=== PATIENT | male | born 1960 | race Caucasian/White ===

== ENCOUNTER → 2023-12-09 06:25 | Day surgery (SDC) | payer BC, SELFPAY | LOC: GI 06:25 | PROVIDERS: ATTENDING PHYSICIAN Internal Medicine Gastroenterology | DX: Z12.11 Encounter for screening for malignant neoplasm of colon (principal); K57.30 Diverticulosis of large intestine without perforation or abscess without bleeding; K64.0 First degree hemorrhoids; D12.2 Benign neoplasm of ascending colon; D12.3 Benign neoplasm of transverse colon; D12.7 Benign neoplasm of rectosigmoid junction | CPT/HCPCS: 45385; 45380; 88305 ==

== ENCOUNTER 2024-05-05 23:32 | Emergency (ER) | payer BC, MEDICARE, SELFPAY ==
[2024-05-05 23:32] VITALS: BMI 26.9
[2024-05-05 23:53] VITALS: BP 160/94
--- NOTE | 2024-05-06 00:09 | ED.GENMED ---
History of Present Illness
<ST BrunaMA - Last Filed: 05/06/24 03:45>
General
Chief Complaint: Heart Rate Problem
Source: patient
Exam Limitations: none
Time Seen by Provider: 05/06/24 00:01
History of Present Illness
History of Present Illness:
Patient is a 64 y/o male with PMHx of hyperlipidemia presenting with racing heart rate x2 hours. He states he was on his way home from work and he felt like his heart was racing. He states it has been constant since then so he came to the hospital.
He states he felt similar symptoms around 4 years ago and he stopped drinking caffeine and it went away. He denies any vision changes, dizziness, chest pain, SOB, abdominal pain, nausea, edema.
Past History
<ST BrunaMA - Last Filed: 05/06/24 03:45>
Past History
ED Past Medical History: None
ED Past Surgical History: None
Social History
Tobacco: Non-smoker
Alcohol: None
Drug: None
Personal: Single
Living: with family
Employment: Employed
Family History
Family History: Other (Noncontributory)
Phy Exam
<Anderson Wisdom [facility] - Last Filed: 05/06/24 03:45>
Physical Exam
Physical Exam:
GENERAL: Alert , in no apparent distress
EYE: pupils equal and reactive
Throat: Airway intact, no exudates
NECK: Supple, no significant adenopathy.
CARDIAC: Irregularly irregular rhythm . No murmurs.
LUNGS: Clear breath sounds bilaterally, no acute respiratory distress, no wheezes/rales/rhonchi
ABDOMEN: Soft, nondistended, nontender
NEUROLOGICAL: Alert and oriented, no focal neuro deficits
SKIN: Warm and dry, skin intact.
MUSCULOSKELETAL: No edema, well perfused.
PSYCH: Normal and appropriate interaction.
Scores
<Anderson Wisdom [facility] - Last Filed: 05/06/24 03:45>
[id number] Score for Afib Stroke Risk
Score: 1
Anticoagulation Recommendations: Consider anticoagulation (as validated in nonvalvular fib)
<Enrique Anguiano DO - Last Filed: 05/06/24 03:15>
[id number] Score for Afib Stroke Risk
Age in Years (65=0, 65-74=1, >/=75=2): 65-74
Sex (Female=+1): Male
Congestive Heart Failure History (Yes=+1): No
Hypertension History (Yes=+1): No
Stroke/TIA/Thromboembolism History (Yes=+2): No
Vascular Disease History (Yes=+1): No
Diabetes Mellitus (Yes=+1): No
Score: 1
Anticoagulation Recommendations: Consider anticoagulation (as validated in nonvalvular fib)
Course
<Anderson Wisdom [facility] - Last Filed: 05/06/24 03:45>
Orders/Labs/Results
Orders:
Orders
05/05/24 23:46
Electrocardiogram (*1) Urgent
Reason for Study: Palpitations
05/05/24 23:47
EKG- Treatment ONCE
05/06/24 00:27
Comprehensive Metabolic Panel Urgent
05/06/24 00:28
Complete Blood Count/With Diff Urgent
TSH Urgent
Comment: ADD ON
Troponin I Urgent
05/06/24 00:44
Add On- LAB Urgent
Tests Added?: TSH
0.9% Sodium Chloride 1000 ml [Nss] 1,000 ml IV BOLUS
05/06/24 01:53
Electrocardiogram (*1) Urgent
Reason for Study: Atrial Fibrillation
EKG- Treatment ONCE
05/06/24 03:12
Aspirin 325 mg PO NOW STA
Abnormal Lab Results
05/06/24 05/06/24
00:27 00:28
MPV 10.6 H fL
(7.4-10.4)
Abs Immat Gran (auto) 0.1 H 10^3/uL
(0-0.05)
Absolute Monos (auto) 0.9 H 10^3/uL
(0.1-0.6)
Immature Gran % 1.0 H %
(0-0.5)
Monocytes % 12.7 H %
(1.7-9.3)
Sodium 134 L mmol/L
(135-145)
BUN 22 H mg/dl
(9-20)
Glucose 122 H mg/dl
(70-99)
TSH 5.25 H uIU/ml
(0.47-4.68)
05/06/24 00:28
05/06/24 00:27
Vital Signs
Initial and Last Documented VS:
Initial Vital Signs
Temp Pulse Resp BP Pulse Ox
98.5 F 83 16 160/94 99
05/05/24 23:53 05/05/24 23:53 05/05/24 23:53 05/05/24 23:53 05/05/24 23:53
Last Documented Vital Signs
Temp Pulse Resp BP Pulse Ox
98.5 F 67 16 124/84 97
05/05/24 23:53 05/06/24 03:15 05/06/24 03:15 05/06/24 03:01 05/06/24 00:25
Harrylt;Enrique Anguiano, DO - Last Filed: 05/06/24 03:15>
Orders/Labs/Results
Orders:
Orders
05/05/24 23:46
Electrocardiogram (*1) Urgent
Reason for Study: Palpitations
05/05/24 23:47
EKG- Treatment ONCE
05/06/24 00:27
Comprehensive Metabolic Panel Urgent
05/06/24 00:28
Complete Blood Count/With Diff Urgent
TSH Urgent
Comment: ADD ON
Troponin I Urgent
05/06/24 00:44
Add On- LAB Urgent
Tests Added?: TSH
0.9% Sodium Chloride 1000 ml [Nss] 1,000 ml IV BOLUS
05/06/24 01:53
Electrocardiogram (*1) Urgent
Reason for Study: Atrial Fibrillation
EKG- Treatment ONCE
05/06/24 03:12
Aspirin 325 mg PO NOW STA
Abnormal Lab Results
05/06/24 05/06/24
00:27 00:28
MPV 10.6 H fL
(7.4-10.4)
Abs Immat Gran (auto) 0.1 H 10^3/uL
(0-0.05)
Absolute Monos (auto) 0.9 H 10^3/uL
(0.1-0.6)
Immature Gran % 1.0 H %
(0-0.5)
Monocytes % 12.7 H %
(1.7-9.3)
Sodium 134 L mmol/L
(135-145)
BUN 22 H mg/dl
(9-20)
Glucose 122 H mg/dl
(70-99)
TSH 5.25 H uIU/ml
(0.47-4.68)
05/06/24 00:28
05/06/24 00:27
Vital Signs
Initial and Last Documented VS:
Initial Vital Signs
Temp Pulse Resp BP Pulse Ox
98.5 F 83 16 160/94 99
05/05/24 23:53 05/05/24 23:53 05/05/24 23:53 05/05/24 23:53 05/05/24 23:53
Last Documented Vital Signs
Temp Pulse Resp BP Pulse Ox
98.5 F 67 16 124/84 97
05/05/24 23:53 05/06/24 03:15 05/06/24 03:15 05/06/24 03:01 05/06/24 00:25
<DENNIS Mcfarland - Last Filed: 05/06/24 03:45>
MDM/Problems Addressed
Differential Diagnosis Includes:
Differential includes but is not limited to a-fib, hyperthyroid, electrolyte abnormality
<DENNIS Mcfarland - Last Filed: 05/06/24 03:45>
*Pulse Oximetry
Patient hypoxic: no
*EKG
Interpreted by ED Provider?: Yes
EKG Intrepretation Date: 05/06/24
Interpretation: abnormal
Comparison EKG: no comparison EKG present
Heart Rate: 119
Rate: tachycardiac
Rhythm: a-fib
[place]: normal axis
Interval: normal interval
QRS Pattern: other (Left anterior fascicular block)
Ischemia: no ischemia
*Bioinformatics Software Engineer Interpretation
Rate: Bioinformatics Software Engineer- N/A
*Critical Care Note
Total Time (30-74mins, 75-104mins- exclusive of procedures): Not Applicable
<DENNIS Mcfarland - Last Filed: 05/06/24 03:45>
Update Note
Update Note:
01:15 am: On EKG patient is in A-fib with RVR. While examining the patient, he is going in and out of a-fib. We will give patient fluids and evaluate status after.
<Enrique Anguiano DO - Last Filed: 05/06/24 03:15>
Update Note
Update Note:
01:15 am: On EKG patient is in A-fib with RVR. While examining the patient, he is going in and out of a-fib. We will give patient fluids and evaluate status after.
05/06/2024 0311 AM: Patient was able to ambulate around the department. He remained in sinus rhythm. His [id number] score is 1. He was briefly in A-fib for less than 2 hours total. Patient will be started on an aspirin and follow-up with
cardiology. No DOAC to be prescribed at this time.
ED Attending Note
<DENNIS Mcfarland - Last Filed: 05/06/24 03:45>
-
Portions of this chart may have been created with voice recognition software.� Occasional wrong word or��sound alike� substitutions may have occurred due to the inherent limitations of voice recognition software.
<Enrique Anguiano DO - Last Filed: 05/06/24 03:15>
ED Attending Note
Patient seen and examined by attending physician: Yes
I performed the substantive portion of visit, reviewed & personally made and approve the management plan that is documented in note by myself or RAVINDER.: Yes
ED Attending Note:
This a pleasant 64-year-old male who presents with heart palpitations. He states that shortly after returning home from work he developed these palpitations. He states he got home from work and smoked marijuana and then developed the palpitations
thereafter. Patient states that initially it was intermittent but then became constant. Patient had identical symptoms several years ago and gave up caffeine, which seemed to help the symptoms. Patient denies chest pain or shortness of breath.
Denies fever, chills, nausea or vomiting. Patient was seen in conjunction with the PA student. I have reviewed and agree with the history and treatment plan presented. On my independent physical exam, patient is awake, alert, and oriented x3, no
acute distress. Heart is irregularly irregular consistent with atrial fibrillation. He does have runs of normal sinus rhythm. Lungs are clear to auscultation bilaterally without wheezes rales or rhonchi present. Abdomen soft nontender. Skin is
warm and dry.
Discharge Plan
Departure
Patient Disposition: Home (Routine Discharge)
Date of Disposition: 05/06/24
Time of Disposition: 03:13
Patient with high blood pressure during this ER visit?: Yes
Condition: Good
Discharge Problem:
Paroxysmal A-fib
Instructions: Atrial Fibrillation (DC), Palpitations (DC), BLOOD PRESSURE
Prescriptions:
No Action
No Meds [No Current Medications]
0
oxycodone-acetaminophen [Percocet] 1 EACH tablet
1 - 2 ea PO Q6HPRN PRN (Reason: pain) Qty: 20 0RF
methylprednisolone [Medrol (Theodore)] 4 MG tablets,dose pack
4 mg PO DAILY Qty: 21 0RF
Rx Instructions:
Take 6 tablets on Day 1, 5 tablets on Day 2, 4 tablets on Day 3,
3 tablets on Day 4, 2 tablets on Day 5, 1 tablet on Day 6.
amoxicillin-pot clavulanate 875 MG/125 MG tablet
1 tab PO Q12 Qty: 20 0RF
Referrals:
Do.[facility] [Provider Group] - Call in 1-3 days for appt
UNKNOWN - PT DOES,NOT KNOW [Unknown Provider] -
Activity Restrictions/Additional Instructions:
Please continue to take a baby aspirin daily. Follow-up with [facility] cardiology to discuss long-term treatment of your paroxysmal atrial fibrillation.
It was a pleasure meeting you and taking part in your care. We hope for your continued healing and wellness.
Please read discharge instructions in their entirety. However, they are for general education and may not describe your exact diagnosis at discharge. Information on your ER visit and medical conditions were discussed with you along with appropriate
follow up information...
If indicated, please take your medications as instructed and indicated on discharge paperwork.
Please schedule a follow up appointment as directed. Call to schedule an appointment
Please return to the emergency department with ANY change in, persisting, or worsening of symptoms. If any of your symptoms do not improve, or persist, or become more severe within 6-12 hours, please return to the emergency department for further
care.
Please return to the emergency department if you develop a headache, neck pain/stiffness, fever greater than 100.4F, chest pain, shortness of breath, persistent nausea, vomiting, slurred speech, difficulty walking, numbness/tingling, weakness, signs
of infection or any other symptoms that are worrisome to you.
If you have any questions or concerns please do not hesitate to call the Hospital at or E-mail me directly at [email or web address]
Interventions
Interventions:
*Risk Screen - Suicide Last Done: 05/05/24 23:53
*General Assessment Last Done: 05/05/24 23:53
*Neglect/Abuse Screening Last Done: 05/05/24 23:53
ED- Fall Risk Assessment Last Done: 05/06/24 00:25
*ED COVID-19 Vaccine History Last Done: 05/06/24 00:25
*Nursing Disposition Last Done: 05/06/24 03:27
ED- Cardiac Assessment Last Done: 05/06/24 00:25
ED- Pulmonary Assessment Last Done: 05/06/24 00:25
Discharge Date and Time
Discharge Date/Time: 05/06/24 03:31
Print Language: MONGOLIAN
[2024-05-06 00:40] LABS: % Basophils 0.9 % (0-2); % Eosinophils 3.3 % (0-6); % Lymphocytes 32.2 % (20.5-51.1); % Monocytes 12.7 % (1.7-9.3); % Neutrophils 49.9 % (42.2-75.2); Absolute Basophils 0.1 10^3/uL (0-0.2); Absolute Eosinophils 0.2 10^3/uL (0-0.7); Absolute Immature Granulocytes 0.1 10^3/uL (0-0.05); Absolute Lymphocytes 2.2 10^3/uL (1.2-3.4); Absolute Monocytes 0.9 10^3/uL (0.1-0.6); Absolute Neutrophils 3.5 10^3/uL (1.4-6.5); Hematocrit 41.7 % (39.0-52.0); Hemoglobin 14.4 g/dL (13.0-18.0); Mean Corp Hgb Conc. 34.5 g/dL (33.0-37.0); Mean Corpuscular Hgb 30.3 pg (27.0-31.0); Mean Corpuscular Volume 87.8 fL (80.0-94.0); Mean Platelet Volume 10.6 fL (7.4-10.4); Nucleated Red Blood Cells % 0 % (-); Platelet Count 275 10^3/uL (130-400); Red Blood Cell Count 4.75 10^6/uL (4.70-6.10); Red Cell Dist. Width 14.3 % (11.5-14.5); White Blood Cell Count 6.9 10^3/uL (4.8-10.8)
[2024-05-06 00:48] LABS: ALT (SGPT) 22 U/L (0-50); AST (SGOT) 26 U/L (17-59); Albumin 4.3 g/dl (3.5-5.0); Alkaline Phosphatase 75 U/L (38-126); Blood Urea Nitrogen 22 mg/dl (9-20); Calcium 9.1 mg/dl (8.4-10.2); Carbon Dioxide 28 mmol/L (22-30); Chloride 103 mmol/L (98-107); Estimated Creatinine Clearance 70 ml/min; Glucose 122 mg/dl (70-99); Potassium 4.2 mmol/L (3.5-5.1); Sodium 134 mmol/L (135-145); Total Bilirubin 0.5 mg/dl (0.2-1.3); Total Protein 6.4 g/dl (6.3-8.2); eGFR > 60.00
[2024-05-06] MEDS: NSS 1000 IV (00:58)
[2024-05-06 01:00] VITALS: BP 146/108
[2024-05-06 01:15] LABS: Troponin I < 0.012 ng/ml
[2024-05-06 01:52] LABS: TSH 5.25 uIU/ml (0.47-4.68)
[2024-05-06 02:00] VITALS: BP 123/77
[2024-05-06 03:01] VITALS: BP 124/84
[2024-05-06] MEDS: ASPIRIN 325 MG PO (03:22)
== END 2024-05-06 03:31 | disposition home or self-care (01) ==
LOC: EMR 23:32
PROVIDERS: EMERGENCY PHYSICIAN Student in an Organized Health Care Education/Training Program; FAMILY PHYSICIAN Family Medicine
DX: I48.0 Paroxysmal atrial fibrillation (principal); R00.2 Palpitations; E78.00 Pure hypercholesterolemia, unspecified
CPT/HCPCS: 99283; 96360; 96361; 80053; 84443; 84484; 85025; 93005

== ENCOUNTER → 2024-05-29 11:15 | Outpatient (REF) | payer BC, SELFPAY | LOC: HWRCS 11:15 | PROVIDERS: ATTENDING PHYSICIAN Internal Medicine Cardiovascular Disease; FAMILY PHYSICIAN Student in an Organized Health Care Education/Training Program | DX: I48.0 Paroxysmal atrial fibrillation (principal) | CPT/HCPCS: 93306 ==